=== PATIENT | female | born 1995 | race Caucasian/White ===

== ENCOUNTER 2023-11-20 15:58 | Emergency (ER) | payer MEDICARE, MEDICAID, SELFPAY ==
[2023-11-20 16:01] VITALS: BP 120/80; PULSE 86; RESP 18; TEMP 36.4; O2SAT 98; BMI 38.7
--- NOTE | 2023-11-20 16:21 | ED_ITS ---
HPI - General Adult General Chief complaint: Abdominal Pain Stated complaint: Abd pain, nausea, diarrhea Time Seen by Provider: 11/20/23 16:13 History of Present Illness HPI narrative: Patient is a 28 year white female with bipolar depression, who is on Abilify, hydroxyzine and Lamictal which was new over the last week, she who recently returned from the [facility] about a week ago. She initially on Wednesday after returning had some constipation feeling and intermittent epi gastric discomfort, now she has had more loose stool over the last few days. She reports a crampy abdominal discomfort that is occasional. She does not have any right now. She has not really felt nausea, no vomiting, no blood in her stool, no blood in her vomitus. No contacts have been ill. She has been largely pretty healthy other than her mental health. No abdominal surgeries. Related Data Home Medications ?Medication ?Instructions ?Recorded ?Confirmed aripiprazole 20 mg tablet (Abilify) 20 mg PO DAILY 11/20/23 11/20/23 hydroxyzine HCl 10 mg tablet 10 mg PO Q8H PRN 11/20/23 11/20/23 lamotrigine 25 mg tablet (Lamictal) 25 mg PO DAILY 11/20/23 11/20/23 Allergies Allergy/AdvReac Type Severity Reaction Status Date / Time No Known Drug Allergies Allergy Verified 11/20/23 16:07 Review of Systems Status of ROS: Reports: 6 or more systems reviewed and unremarkable except as noted in History and below PFSH PFSH Social History Smoking Status: Current every day smoker Do you use any of these nicotine containing products: E-Cigarettes and Vaping Products Second hand tobacco smoke exposure: No How often do you have a drink containing alcohol: monthly or less AUDIT-C Alcohol total score: 1 Non-prescribed substance use: marijuana (any form) Exam Narrative: Exam Narrative: Objective: Patient's vital signs are completely normal She is alert or x3 in no distress Mouth is well hydrated No scleral icterus Neck is supple Abdomen is obese benign nontender no masses or peritonitis no epigastric pain no right upper quadrant pain no low right lower quadrant pain. Extremities are no edema Neurologic nonfocal. Const: Vital Signs, click to edit/add: Vital Signs - 24 hr 11/20/23 16:01 Temperature 97.5 F L Pulse Rate [Pulse Oximeter] 86 Respiratory Rate 18 Blood Pressure [Ri t Upper Arm] 120/80 Pulse Oximetry 98 Oxygen Delivery Me thod Room Air Course Vital Signs Vital signs: Initial Vital Signs Temperature 97.5 F L 11/20/23 16:01 Temperature Source Temporal Artery Scan 11/20/23 16:01 Pulse Rate 86 11/20/23 16:01 Respiratory Rate 18 11/20/23 16:01 Blood Pressure 120/80 11/20/23 16:01 Blood Pressure Mean 93 11/20/23 16:01 Blood Pressure Position Sitting 11/20/23 16:01 Pulse Oximetry 98 11/20/23 16:01 Oxygen Delivery Method Room Air 11/20/23 16:01 Vital Signs Temperature 97.5 F L 11/20/23 16:01 Pulse Rate 86 11/20/23 16:01 Respiratory Rate 18 11/20/23 16:01 Blood Pressure 120/80 11/20/23 16:01 Pulse Oximetry 98 11/20/23 16:01 Oxygen Delivery Method Room Air 11/20/23 16:01 Temperature 97.5 F L 11/20/23 16:01 Pulse Rate 86 11/20/23 16:01 Respiratory Rate 18 11/20/23 16:01 Blood Pressure 120/80 11/20/23 16:01 Pulse Oximetry 98 11/20/23 16:01 Oxygen Delivery Method Room Air 11/20/23 16:01 Medications Administered Medications: Discontinued Medications Generic Name Dose Route Start Last Admin Trade Name Freq PRN Reason Stop Dose Admin Sodium Chloride 1,000 mls @ 6,000 mls/hr 11/20/23 16:30 11/20/23 17:46 0.9 % Sodium Chloride 1000 Ml IV 11/20/23 16:39 Infused .Q10M RAYMOND Infusion Ondansetron HCl 4 mg 11/20/23 16:20 11/20/23 16:55 Ondansetron 2 Mg/Ml Inj IVP 11/20/23 16:21 4 mg ONCE ONE Administration Medical Decision Making MDM Narrative Medical decision making narrative: 20-year-old female with epigastric discomfort LMP was 1 week ago, will check a test, will do IV fluid, IV Zofran, check laboratory studies. Good a stool culture O&P if she is able if not will send her home with containers cheek collect these and bring him back to the hospital. This is only because she has traveled. She does not appear to be markedly dehydrated but certainly could have some mild dehydration with her looser stool. Will see if that will help her feel little bit better. Certainly starting new medication can have some affect in maybe a getting used to it. Of the new medicine. Would recommend observation continue her meds at home and will check the samples as above. Donna quiñones recommend she recheck with regular doctor next 2-3 days, return to the ED sooner problems or concerns. Will route to review these labs they return. Addendum 5:21 p.m.: The patient's lab studies showed normal white count, normal hemoglobin, normal differential, ER profile shows a low normal potassium at 3.3 otherwise unremarkable, CRP is minimally changed to 2.5, LFT slightly elevated at 53 and 924 AST and ALT respectively. Stool culture and O and P and C diff pending at this time. Home rest light activity fluids Tylenol and Advil as needed, will call back with the results of her lab studies. Recommend follow up with regular doctor next couple of days. Lab Data Labs: Lab Results 11/20/23 Range/Units 16:35 WBC 5.99 (4.50-11.00) K/uL RBC 4.68 (4.00-5.20) m/uL Hgb 14.0 (12.0-16.0) gm/dL Hct 41.9 (33.0-51.0) % MCV 90 (80-100) fL MCH 30 (26-34) pg MCHC 33 (32-36) gm/dL RDW Coeff of [place] 13.0 (11.5-15.5) % Plt Count 284 (140-440) K/uL Neut % (Auto) 55.5 (42.0-72.0) % Lymph % (Auto) 32.6 (20-44) % [place] % (Auto) 10.0 (0.0-11.0) % Eos % (Auto) 1.3 (0.0-7.0) % Baso % (Auto) 0.3 (0.0-3.0) % Neut # (Auto) 3.32 (1.7-7.0) K/uL Lymph # (Auto) 1.95 (0.90-2.90) K/uL [place] # (Auto) 0.60 (0.00-0.90) K/UL Eos # (Auto) 0.08 (0.00-0.50) K/uL Baso # (Auto) 0.02 (0.00-0.30) K/uL Abs Immat Gran (auto) 0.02 (0.00-0.30) K/uL Imm/Tot Granulo (auto) 0.3 % Sodium 140 (135-149) mmol/L Potassium 3.3 L (3.6-5.1) mmol/L Chloride 104 (96-114) mmol/L Carbon Dioxide 25 (20-32) mmol/L Anion Gap 11 (7-15) mEq/L BUN 10 (5-24) mg/dL Creatinine 0.9 (0.5-1.5) mg/dL Estimated Creat Clear 100.64 Estimated GFR 89 ml/min Glucose 98 (60-115) mg/dL Calcium 9.4 (8.4-10.6) mg/dL Total Bilirubin 0.5 (0.1-1.5) mg/dL Direct Bilirubin 0.4 (0.0-0.5) mg/dL AST 53 H (12-35) U/L ALT 92 H (4-35) U/L Alkaline Phosphatase 71 (40-150) U/L C-Reactive Protein 2.5 H (0.5-1.0) mg/dL Total Protein 7.7 (6.0-8.3) g/dL Albumin 4.8 (3.3-5.0) g/dL Amylase 70 (18-89) U/L Discharge Plan Discharge Clinical Impression: Diarrhea Patient Disposition: Home w/ Parent or Adult Condition: Stable Additional Instructions: Recommend light activity, Tylenol as needed, fluids, continue home medications. Follow-up with your regular doctor in the next 2-3 days, return to ED sooner problems or concerns. Activity Level: Light activity Discharge Diet: Clear Liquid Diet Detail: Advance diet as tolerated Prescriptions: No Action aripiprazole [Abilify] 20 mg tablet 20 mg PO DAILY lamotrigine [Lamictal] 25 mg tablet 25 mg PO DAILY hydroxyzine HCl 10 mg tablet 10 mg PO Q8H PRN Stand Alone Forms: [facility] Info Instructions
[2023-11-20 16:46] LABS: Basophils Absolute Auto 0.02 K/uL (0.00-0.30); Basophils Percent Auto 0.3 % (0.0-3.0); Eosinophils Absolute Auto 0.08 K/uL (0.00-0.50); Eosinophils Percent Auto 1.3 % (0.0-7.0); Hematocrit 41.9 % (33.0-51.0); Immature Granulocytes Abs Auto 0.02 K/uL (0.00-0.30); Immature Granulocytes Pct Auto 0.3 %; Lymphocytes Absolute Auto 1.95 K/uL (0.90-2.90); Lymphocytes Percent Auto 32.6 % (20-44); Mean Corpuscular HGB Conc 33 gm/dL (32-36); Mean Corpuscular Hemoglobin 30 pg (26-34); Mean Corpuscular Volume 90 fL (80-100); Neutrophils Absolute Auto 3.32 K/uL (1.7-7.0); Neutrophils Percent Auto 55.5 % (42.0-72.0); Platelet Count* 284 K/uL (140-440); Red Blood Count 4.68 m/uL (4.00-5.20); White Blood Count* 5.99 K/uL (4.50-11.00)
[2023-11-20 16:50] LABS: Slide Review Reflex No
[2023-11-20] MEDS: ONDANSETRON 2 MG/ML inj 4 MG IVP (16:55)
[2023-11-20] MEDS: 0.9 % SODIUM CHLORIDE 1000 ml 1,000 ML 6000 ML IV (16:55)
[2023-11-20 17:00] LABS: Albumin* 4.8 g/dL (3.3-5.0); Chloride* 104 mmol/L (96-114)
[2023-11-20 17:01] LABS: Potassium* 3.3 mmol/L (3.6-5.1); Sodium* 140 mmol/L (135-149)
[2023-11-20 17:03] LABS: Amylase* 70 U/L (18-89); Creatinine* 0.9 mg/dL (0.5-1.5); Est. Creatinine Clearance* 100.64; Estimated Glomerular Filt Rate 89 ml/min
[2023-11-20 17:04] LABS: Alanine Aminotransferase* 92 U/L (4-35); Alkaline Phosphatase* 71 U/L (40-150); Anion Gap 11 mEq/L (7-15); Aspartate Amino Transferase* 53 U/L (12-35); Bilirubin Direct* 0.4 mg/dL (0.0-0.5); Bilirubin Total* 0.5 mg/dL (0.1-1.5); Blood Urea Nitrogen* 10 mg/dL (5-24); Calcium* 9.4 mg/dL (8.4-10.6); Carbon Dioxide* 25 mmol/L (20-32); Glucose* 98 mg/dL (60-115); Total Protein* 7.7 g/dL (6.0-8.3)
[2023-11-20 17:07] LABS: C Reactive Protein* 2.5 mg/dL (0.5-1.0)
[2023-11-20 17:59] LABS: C.Difficile Negative (Negative); CDIFFEPI 027 PRESUMPTIVE NEGATIVE (Negative)
[2023-11-24 17:43] LABS: Ova and Parasite, Fecal Negative (Negative)
== END 2023-11-20 17:44 | disposition home or self-care (01) ==
PROVIDERS: Emergency Provider Family Medicine
DX: R19.7 Diarrhea, unspecified (principal)
CPT/HCPCS: 36415; 80048; 80076; 82150; 85025; 86140; 87045; 87046; 87177; 87209; 87427; 87493; 96374; 99284; J2405; J7030

== ENCOUNTER 2023-11-21 01:05 | Emergency (ER) | payer MEDICARE, OTHER, SELFPAY ==
[2023-11-21 01:16] VITALS: BP 117/79; PULSE 79; RESP 16; TEMP 36.7; O2SAT 97
[2023-11-21 02:25] VITALS: BP 125/64; PULSE 79; RESP 16; O2SAT 98
--- NOTE | 2023-11-21 02:35 | ED.GENADULT ---
HPI - General Adult General Chief complaint: Abdominal Pain Stated complaint: Abdominal Pain Time Seen by Provider: 11/21/23 02:25 History of Present Illness HPI narrative: past 4 days mid upper abd pain , comes and goes, but when it comes feels sharp and crampy, has been having watery diarrhea since . nausea present. states nothing helps the pain. 28-year-old woman presenting to the emergency room with sharp and crampy upper and mid abdominal pain over the last few days. Has also been experiencing watery diarrhea. No hematochezia described. Nauseated as well. No particular exposures noted. No fever. No rash. Had returned from the [facility] week prior. Seen yesterday in this department. Sent with stool collection cup if symptoms were to continue. Colicky pain has gotten more intense. No noted family history of ulcerative colitis or Crohn's. Related Data Home Medications ?Medication ?Instructions ?Recorded ?Confirmed aripiprazole 20 mg tablet (Abilify) 20 mg PO DAILY 11/20/23 11/20/23 hydroxyzine HCl 10 mg tablet 10 mg PO Q8H PRN 11/20/23 11/20/23 lamotrigine 25 mg tablet (Lamictal) 25 mg PO DAILY 11/20/23 11/20/23 Previous Rx's ?Medication ?Instructions ?Recorded hyoscyamine sulfate 0.125 mg tablet 0.25 mg (2 x 0.125 mg) PO BID-QID 11/21/23 PRN Abdominal cramping #30 tabs Allergies Allergy/AdvReac Type Severity Reaction Status Date / Time No Known Drug Allergies Allergy Verified 11/20/23 16:07 Review of Systems Status of ROS: Reports: 6 or more systems reviewed and unremarkable except as noted in History and below [facility] Social History Smoking Status: Current every day smoker Do you use any of these nicotine containing products: E-Cigarettes and Vaping Products Second hand tobacco smoke exposure: No How often do you have a drink containing alcohol: monthly or less AUDIT-C Alcohol total score: 1 Non-prescribed substance use: marijuana (any form) Exam Narrative: Exam Narrative: Pleasant. Clearly very uncomfortable. Bowel sounds are present. Diffusely tender. More so in the upper abdomen. No flank pain. Oropharynx is a little sticky. Lungs are clear. Heart in regular rate and rhythm. Extremities are well perfused without edema. Skin is warm and dry without rash. Good turgor. Const: Vital Signs, click to edit/add: Vital Signs - 24 hr 11/21/23 01:16 11/21/23 02:25 Temperature 98.1 F Pulse Rate [Pulse Oximeter] 79 79 Respiratory Rate 16 16 Blood Pressure [Ri ght Upper Arm] 117/79 125/64 Pulse Oximetry 97 98 Oxygen Delivery Me thod Room Air Room Air Documenting provider has reviewed patient's vital signs: yes Course Vital Signs Vital signs: Initial Vital Signs Temperature 98.1 F 11/21/23 01:16 Temperature Source Temporal Artery Scan 11/21/23 01:16 Pulse Rate 79 11/21/23 01:16 Respiratory Rate 16 11/21/23 01:16 Blood Pressure 117/79 11/21/23 01:16 Blood Pressure Mean 91 11/21/23 01:16 Blood Pressure Position Sitting 11/21/23 01:16 Pulse Oximetry 97 11/21/23 01:16 Oxygen Delivery Method Room Air 11/21/23 01:16 Vital Signs Temperature 98.1 F 11/21/23 01:16 Pulse Rate 79 11/21/23 01:16 Respiratory Rate 16 11/21/23 01:16 Blood Pressure 117/79 11/21/23 01:16 Pulse Oximetry 97 11/21/23 01:16 Oxygen Delivery Method Room Air 11/21/23 01:16 Temperature 98.1 F 11/21/23 01:16 Pulse Rate 79 11/21/23 02:25 Respiratory Rate 16 11/21/23 02:25 Blood Pressure 125/64 11/21/23 02:25 Pulse Oximetry 98 11/21/23 02:25 Oxygen Delivery Method Room Air 11/21/23 02:25 Medications Administered Medications: Discontinued Medications Generic Name Dose Route Start Last Admin Trade Name Freq PRN Reason Stop Dose Admin Hyoscyamine 0.25 mg 11/21/23 02:49 11/21/23 03:18 Hyoscyamine Sulfate 0.125 Mg Tab SUBLINGUAL 11/21/23 02:50 0.25 mg ONCE ONE Administration Sodium Chloride 1,000 mls @ 1,000 mls/hr 11/21/23 02:49 06/23/24 03:42 0.9 % Sodium Chloride 1000 Ml IV 11/21/23 03:48 Infused .Q1H ONE Infusion Ketorolac Tromethamine 30 mg 11/21/23 02:49 11/21/23 03:18 Ketorolac 30 Mg/Ml Inj IVP 11/21/23 02:50 30 mg ONCE ONE Administration Medical Decision Making MDM Narrative Medical decision making narrative: At a minimum would appear to have a colitis. Likely infectious. No samples yet. I think is dehydrated probably given the diarrhea that she has been describing. More distressing though is intensity of abdominal pain which I think is probably most related to intestinal colic. Would evaluate though with return visit for degree of colitis, electrolytes or evidence of escalating infection. Differential would include hepatitis as well. Ordering IV fluids and ketorolac and hyoscyamine which I think will be beneficial given the cramping that is described. Pending improvement might also do CT imaging as she is experiencing so much discomfort and degree of diarrhea. Could potentially defer however after discussion she would like to proceed with this. Labs are reassuring. White count is normal. Transaminases are little bit elevated. This could be related to gastrointestinal illness or to fatty liver. CT scan reviewed by me appears to show some intestinal edema which I would think would be related to diarrheal illness. I do not see concerning air-fluid levels or evidence of discrete colitis Radiology over-read as below INDICATION: Copious diarrhea and abdominal cramping TECHNIQUE: CT abdomen and pelvis with 132 cc Omnipaque 370 IV contrast. COMPARISON: None. FINDINGS: Hepatomegaly and hepatic steatosis. Gallbladder and biliary tree are normal. The spleen, adrenal glands and pancreas are within normal limits. Punctate nonobstructing left intrarenal calculus. Kidneys enhance symmetrically. No hydronephrosis. Unremarkable appearing bladder. No evidence of obstruction or inflammation. Mild fluid-filled colon and rectum which can be seen in a diarrheal state. Unremarkable appendix. No significant free fluid and no free air. Pelvic organs are unremarkable. The lower chest is unremarkable. L5 superior endplate Schmorl`s node. IMPRESSION: 1. Mild fluid-filled colon and rectum which can be seen in a diarrheal state. No evidence of obstruction or inflammation. 2. Punctate nonobstructing left intrarenal calculus. 3. Hepatomegaly and hepatic steatosis. CT imaging does show hepatic steatosis which might explain the mildly elevated transaminases. Finding also of renal stone nonobstructing Overall improved over time in the emergency department. See patient discharge plan for further discussion Medical Records Medical records reviewed: Yes I reviewed the patient's medical records Lab Data Lab results reviewed: Yes I reviewed the patient's lab results Labs: Lab Results 11/21/23 Range/Units 03:05 WBC 7.61 (4.50-11.00) K/uL RBC 4.33 (4.00-5.20) m/uL Hgb 13.0 (12.0-16.0) gm/dL Hct 38.8 (33.0-51.0) % MCV 90 (80-100) fL MCH 30 (26-34) pg MCHC 34 (32-36) gm/dL RDW Coeff of [place] 13.1 (11.5-15.5) % Plt Count 270 (140-440) K/uL Neut % (Auto) 57.3 (42.0-72.0) % Lymph % (Auto) 30.4 (20-44) % [place] % (Auto) 10.6 (0.0-11.0) % Eos % (Auto) 1.3 (0.0-7.0) % Baso % (Auto) 0.1 (0.0-3.0) % Neut # (Auto) 4.36 (1.7-7.0) K/uL Lymph # (Auto) 2.31 (0.90-2.90) K/uL [place] # (Auto) 0.80 (0.00-0.90) K/UL Eos # (Auto) 0.10 (0.00-0.50) K/uL Baso # (Auto) 0.01 (0.00-0.30) K/uL Abs Immat Gran (auto) 0.02 (0.00-0.30) K/uL Imm/Tot Granulo (auto) 0.3 % Sodium 139 (135-149) mmol/L Potassium 3.5 L (3.6-5.1) mmol/L Chloride 109 (96-114) mmol/L Carbon Dioxide 22 (20-32) mmol/L Anion Gap 8 (7-15) mEq/L BUN 11 (5-24) mg/dL Creatinine 0.8 (0.5-1.5) mg/dL Estimated GFR 103 ml/min Glucose 105 (60-115) mg/dL Calcium 9.1 (8.4-10.6) mg/dL Total Bilirubin 0.4 (0.1-1.5) mg/dL Direct Bilirubin 0.3 (0.0-0.5) mg/dL AST 48 H (12-35) U/L ALT 86 H (4-35) U/L Alkaline Phosphatase 81 (40-150) U/L C-Reactive Protein 2.1 H (0.5-1.0) mg/dL Total Protein 6.8 (6.0-8.3) g/dL Albumin 4.1 (3.3-5.0) g/dL Lipase 171 (23-300) U/L Discharge Plan Discharge Clinical Impression: Diarrhea, Colicky abdominal pain, Left nephrolithiasis Patient Disposition: Home, Self-Care Condition: Improved Additional Instructions: Focus on hydration. Consider contact printer dry film diet or slow advance of diet over the next 24-36 hours. Soup broths, diluted juices. Crackers, rice, toast. As long as you are not having fever nor seeing blood in your stool, loperamide might be helpful for diarrhea. Be seen if symptoms lasting yet another week, uncontrolled abdominal pain, associated fever, repeated vomiting. Prescriptions: New hyoscyamine sulfate 0.125 mg tablet 0.25 mg PO BID-QID PRN (Reason: Abdominal cramping) Qty: 30 0RF No Action aripiprazole [Abilify] 20 mg tablet 20 mg PO DAILY lamotrigine [Lamictal] 25 mg tablet 25 mg PO DAILY hydroxyzine HCl 10 mg tablet 10 mg PO Q8H PRN Follow Up/Referrals: Provider,Not a Local [Primary Care Provider] - Stand Alone Forms: [facility] Info Instructions
--- NOTE | 2023-11-21 02:49 | CRLHL7_ITS ---
For Patients: As a result of the Century Cures Act, medical imaging exams and procedure reports are released immediately into your electronic medical record. You may view this report before your referring provider. If you have questions, please contact your health care provider. INDICATION: Copious diarrhea and abdominal cramping TECHNIQUE: CT abdomen and pelvis with 132 cc Omnipaque 370 IV contrast. COMPARISON: None. FINDINGS: Hepatomegaly and hepatic steatosis. Gallbladder and biliary tree are normal. The spleen, adrenal glands and pancreas are within normal limits. Punctate nonobstructing left intrarenal calculus. Kidneys enhance symmetrically. No hydronephrosis. Unremarkable appearing bladder. No evidence of obstruction or inflammation. Mild fluid-filled colon and rectum which can be seen in a diarrheal state. Unremarkable appendix. No significant free fluid and no free air. Pelvic organs are unremarkable. The lower chest is unremarkable. L5 superior endplate Schmorl`s node. IMPRESSION: 1. Mild fluid-filled colon and rectum which can be seen in a diarrheal state. No evidence of obstruction or inflammation. 2. Punctate nonobstructing left intrarenal calculus. 3. Hepatomegaly and hepatic steatosis. Please note that all CT scans at this facility use dose modulation, iterative reconstruction, and/or weight-based dosing when appropriate to reduce radiation dose to as low as reasonably achievable. Dictated by Trung Agustin MD @ 11/21/2023 4:28:11 AM (Electronically Signed)
[2023-11-21] MEDS: 0.9 % SODIUM CHLORIDE 1000 ml 1,000 ML IV (03:18)
[2023-11-21] MEDS: HYOSCYAMINE SULFATE 0.125 MG TAB 0.25 MG SUBLINGUAL (03:18)
[2023-11-21] MEDS: KETOROLAC 30 MG/ML inj IVP (03:18)
[2023-11-21 03:31] LABS: Basophils Absolute Auto 0.01 K/uL (0.00-0.30); Basophils Percent Auto 0.1 % (0.0-3.0); Eosinophils Percent Auto 1.3 % (0.0-7.0); Hematocrit 38.8 % (33.0-51.0); Immature Granulocytes Abs Auto 0.02 K/uL (0.00-0.30); Immature Granulocytes Pct Auto 0.3 %; Lymphocytes Absolute Auto 2.31 K/uL (0.90-2.90); Lymphocytes Percent Auto 30.4 % (20-44); Mean Corpuscular HGB Conc 34 gm/dL (32-36); Mean Corpuscular Hemoglobin 30 pg (26-34); Mean Corpuscular Volume 90 fL (80-100); Monocytes Percent Auto 10.6 % (0.0-11.0); Neutrophils Absolute Auto 4.36 K/uL (1.7-7.0); Neutrophils Percent Auto 57.3 % (42.0-72.0); Platelet Count* 270 K/uL (140-440); RDW Coefficient of Variation % 13.1 % (11.5-15.5); Red Blood Count 4.33 m/uL (4.00-5.20); Slide Review Reflex No; White Blood Count* 7.61 K/uL (4.50-11.00)
[2023-11-21 03:48] LABS: Albumin* 4.1 g/dL (3.3-5.0); Chloride* 109 mmol/L (96-114)
[2023-11-21 03:49] LABS: Potassium* 3.5 mmol/L (3.6-5.1); Sodium* 139 mmol/L (135-149)
[2023-11-21 03:51] LABS: Creatinine* 0.8 mg/dL (0.5-1.5); Estimated Glomerular Filt Rate 103 ml/min
[2023-11-21 03:52] LABS: Alanine Aminotransferase* 86 U/L (4-35); Alkaline Phosphatase* 81 U/L (40-150); Anion Gap 8 mEq/L (7-15); Aspartate Amino Transferase* 48 U/L (12-35); Bilirubin Direct* 0.3 mg/dL (0.0-0.5); Bilirubin Total* 0.4 mg/dL (0.1-1.5); Blood Urea Nitrogen* 11 mg/dL (5-24); Calcium* 9.1 mg/dL (8.4-10.6); Carbon Dioxide* 22 mmol/L (20-32); Glucose* 105 mg/dL (60-115); Lipase* 171 U/L (23-300); Total Protein* 6.8 g/dL (6.0-8.3)
[2023-11-21 03:54] LABS: C Reactive Protein* 2.1 mg/dL (0.5-1.0)
== END 2023-11-21 05:01 | disposition home or self-care (01) ==
PROVIDERS: Emergency Provider Family Medicine
DX: N20.0 Calculus of kidney (principal)
CPT/HCPCS: 36415; 74177; 80048; 80076; 83690; 85025; 86140; 96374; 99284; A9270; J1885; J7030; Q9967